=== PATIENT | female | born 1990 | race Caucasian/White ===

== ENCOUNTER 2020-06-28 12:16 | Outpatient (CLI) | payer BC, SELFPAY ==
--- NOTE | ~2020-06-28 | US_ITS ---
EXAMINATION: US venous doppler [facility] DATE: 06/28/2020 12:47 INDICATION: Left lower limb pain. TECHNIQUE: Grayscale ultrasound images without and with compression and Doppler ultrasound images of the left lower extremity veins were obtained. COMPARISON: None. FINDINGS: The visualized portions of left common femoral vein, profunda (deep) femoral vein, femoral vein, popl iteal vein, peroneal veins, posterior tibial veins, and greater saphenous vein outflow are patent. IMPRESSION: 1. No deep venous thrombosis. Reviewed, dictated and finalized at location A. [employer]
== END 2020-06-28 12:17 | disposition home or self-care (01) ==
PROVIDERS: PCP Family Medicine; Visit Provider Physician Assistant
DX: M79.605 Pain in left leg (principal)
CPT/HCPCS: 93971

== ENCOUNTER 2020-06-29 11:20 | Emergency (ER) | payer BC, SELFPAY ==
[2020-06-29 11:37] VITALS: BP 137/72; PULSE 70; RESP 18; TEMP 36.8; O2SAT 100
--- NOTE | 2020-06-29 11:41 | ECG_ITS ---
Measurements Intervals [place] Rate: 64 P: 24 SD: 163 QRS: 66 QRSD: 86 T: 23 QT: 415 QTc: 429 Interpretive Statements SINUS RHYTHM BASELINE WANDER- AVR, AVL, AVF NORMAL ECG Electronically Signed On 06-29-2020 12:41:58 [employer]TR[employer] MACHINE OPERATOR by Danilo Hoang D.O.
[2020-06-29 11:52] LABS: Basophils Absolute Auto 0.1 K/mm3 (0.0-0.1); Basophils Percent Auto 0.6 % (0.2-1.2); Eosinophils Absolute Auto 0.1 K/mm3 (0-0.3); Eosinophils Percent Auto 0.8 % (0-4.4); Hematocrit 41.2 % (37.0-47.0); Hemoglobin 13.9 g/dL (12.0-15.0); Immature Granulocyte Absolute 0.03 K/mm3 (0.00-0.031); Immature Granulocyte Percent A 0.4 % (0-0.5); Lymphocytes Percent Auto 21.8 % (18.3-44.2); Mean Corpuscular HGB Conc 33.7 g/dl (32-36); Mean Corpuscular Hemoglobin 31.1 pg (26-34); Mean Corpuscular Volume 92.2 fl (80-100); Mean Platelet Volume 10.4 fl (7.4-10.4); Monocytes Absolute Auto 0.5 K/mm3 (0.1-0.6); Monocytes Percent Auto 5.6 % (2.6-8.5); Neutrophils Absolute Auto 5.9 K/mm3 (1.3-6.7); Neutrophils Percent Auto 70.8 % (45.5-73.1); Platelet Count Result 297 k/mm3 (150-375); Red Blood Count 4.47 M/mm3 (4.2-5.4); Red Cell Distribution Width 12.6 % (11.5-14.5); White Blood Count 8.3 K/mm3 (4.5-10.0)
[2020-06-29 12:05] LABS: Anion Gap 6 mmol/L (8-16); Blood Urea Nitrogen 8 mg/dL (7-17); Calcium 9.3 mg/dL (8.4-10.2); Carbon Dioxide 28 mmol/L (22-30); Chloride 106 mmol/L (98-107); Estimated CRCL calculation 105 ml/min; Estimated Glomerular Filt Rate > 60; Glucose 92 mg/dL (65-105); Potassium 3.6 mmol/L (3.4-5.0); Sodium 140 mmol/L (137-145)
--- NOTE | 2020-06-29 12:25 | ED.DIZZY ---
HPI - Dizziness General Chief Complaint: Dizziness Stated Complaint: near syncope, vertigo Time Seen by Provider: 06/29/20 11:31 History of Present Illness HPI Narrative: previously healthy 29 yo female presents sto the ED for light headedness. She has had period of dizziness while at work the past 2 days. Both started suddenly. Feel more like light headedness than vertigo. Associated with feeling hot and flushed. She was seen in clinic after the event yesterday and had negative LE dopplers. Today she had a second episode and came to the ED. No CP, SOB, fever, nausea, vomiting, diarrhea Related Data Home Medications Medication Instructions Recorded Confirmed norgestimate-ethinyl estradiol 1 tablet PO DAILY tablet 06/28/20 0.18 mg/0.215mg/0.25mg-35 mcg(28)tablet Allergies Allergy/AdvReac Type Severity Reaction Status Date / Time No Known Allergies Allergy Verified 06/28/20 11:16 Review of Systems Review of Systems: All systems reviewed & are unremarkable except as noted in HPI and below Constitutional: Constitutional: Denies chills, Denies fever(s) and Denies weakness ENT: Reports dizziness and Denies nasal congestion Cardiovascular: Cardiovascular: Denies chest pain Respiratory: Respiratory: Denies dyspnea Gastrointestinal: Gastrointestinal: Denies diarrhea and Denies vomiting Genitourinary: Genitourinary: Denies dysuria Neurologic: Denies confusion, Reports dizziness, Denies syncope and Denies weakness PMFSH Past Medical History Medical History Other allergic rhinitis Palpitations Pansinusitis Surgical History Surgical History Delivery by section H/O dilation and curettage (~06/21/20) Family History Family History Father Family history of malignant neoplasm of brain Grandparent Family history of lymphoma Family history of thyroid disease Hypertension Mother Family history of thyroid disease Family history of mental disorder Sibling Asthma Other Diabetes mellitus Social History Social History (Updated 07/05/20 @ 14:03 by Kris Yeager MD) Smoking status: Never smoker Alcohol intake: current Exam Const: General: healthy appearing, no acute distress and alert Orientation/consciousness: patient oriented x3 HENMT: Head: normal to inspection Ears: TM's normal bilaterally, EAC's normal and external ear abnormal Eyes: Pupils: Equal, round and reactive pupils present EOM: EOMs intact bilaterally Neck: Neck: normal visual inspection Resp: Effort & Inspection: normal respiratory effort Auscultation: clear to auscultation bilaterally, no rales, no rhonchi and no wheezes Cardio: Jugular venous distension: no JVD Rate: regular rate Rhythm: regular rhythm Heart sounds: no murmurs Skin: General skin exam: normal color Neuro: General: patient oriented x3, moves all extremities, no focal motor deficits and CN's II-XI intact bilaterally Cranial nerves: Yes Nystagmus not present Speech: normal speech Gait exam (Neuro): Normal gait present Extrem: General: normal to inspection and no edema Psych: Appearance: well kempt Affect: normal affect Course Vital Signs Vital signs: Vital Signs Temperature 36.8 C 06/29/20 11:37 Pulse Rate 70 06/29/20 11:37 Respiratory Rate 18 06/29/20 11:37 Blood Pressure 137/72 06/29/20 11:37 Pulse Oximetry 100 06/29/20 11:37 Temperature 36.8 C 06/29/20 11:37 Pulse Rate 70 06/29/20 15:00 Respiratory Rate 15 06/29/20 15:00 Blood Pressure 123/77 06/29/20 15:00 Pulse Oximetry 100 06/29/20 15:00 MDM - Dizziness MDM Narrative Medical decision making narrative: UA abnormal, but appears to be contaminate. Otherwise labs and vitals reassuring. EKG normal. Differential Diagnosis Differential diagnosis: Likely benign
[2020-06-29] MEDS: SODIUM CHLORIDE 0.9% IV 1,000 ML 999 ML IV CONT (13:45)
[2020-06-29 13:46] VITALS: BP 124/75; PULSE 67; RESP 16; O2SAT 96
--- NOTE | 2020-06-29 13:48 | PC.NURSE ---
Patient walked to bathroom without difficulty and in no distress at this time.
[2020-06-29 13:57] LABS: Add Urine Microscopic? YES; Appearance Urine Cloudy (Clear); Bacteria Urine 4+ /hpf; Bilirubin Urine Negative (Negative); Blood Urine 1+ (Negative); Color Urine Straw (Yellow); Glucose Urine UA Negative (Negative); Ketones Urine Trace mg/dL (Negative); Leukocyte Esterase Ur Negative LEU/UL (Negative); Mucus Urine Rare /lpf; Nitrate Urine Negative (Negative); Protein Urine Negative (Negative); RBC Urine 0-2 /hpf (0-2); Squamous Epithelial Cell Urine Many /hpf (Few); Urobilinogen Urine Negative mg/dL (<2.0); WBC Urine 0-3 /hpf
[2020-06-29 14:34] LABS: D Dimer 0.38 ug/mL (<0.48)
[2020-06-29 14:38] VITALS: BP 116/70; PULSE 80
[2020-06-29 14:39] VITALS: BP 124/77; BP 130/80; PULSE 71; PULSE 76
[2020-06-29 15:00] VITALS: BP 123/77; PULSE 70; RESP 15; O2SAT 100
== END 2020-06-29 15:01 | disposition home or self-care (01) ==
PROVIDERS: Emergency Provider Emergency Medicine; PCP Family Medicine
DX: R55 Syncope and collapse (principal)
CPT/HCPCS: 36415; 80048; 81001; 81025; 85025; 85380; 93005; 96360; 99284; J7030

== ENCOUNTER → 2021-10-19 01:40 | Outpatient (CLI) | payer BC, OTHER, SELFPAY ==
[2021-10-19 16:55] LABS: SARS-CoV-2 RNA PCR Negative
== END ==
PROVIDERS: PCP Family Medicine; Visit Provider Family Medicine
DX: R68.89 Other general symptoms and signs (principal); Z20.822 Contact with and (suspected) exposure to COVID-19
CPT/HCPCS: C9803; U0003; U0005

== ENCOUNTER 2024-05-23 08:18 | Emergency (ER) | payer OTHER, SELFPAY ==
[2024-05-23 08:36] VITALS: BP 110/77; PULSE 83; RESP 16; TEMP 36.6; O2SAT 100
--- NOTE | 2024-05-23 09:02 | ED_ITS ---
HPI - General Adult General Chief complaint: Skin/Abscess/Foreign Body Stated complaint: Hives Time Seen by Provider: 05/23/24 09:01 Source: patient Mode of arrival: ambulatory Limitations: no limitations History of Present Illness HPI narrative: Pt presents for evaluation of a rash. Symptom onset yesterday. Symptoms were initially in the posterior aspect of her bilateral lower extremities. She now has involvement of her bilateral upper extremities, left flank and abdomen. No history of similar symptoms. No difficulty breathing or swallowing. No one else has similar symptoms. Denies infectious symptoms including but not limited to fever, chills, sore throat. No new lotions, soaps, detergents or topical products. She tried taking claritin for her symptoms. She does not smoke. Related Data Home Medications ?Medication ?Instructions ?Recorded ?Confirmed ?Last Taken ?Type sertraline 25 mg tablet 25 mg PO DAILY 04/11/22 05/23/24 Unknown History norgestimate 0.25 mg-ethinyl tablet PO 10/22/23 10/22/23 Unknown History estradiol 35 mcg tablet (Estarylla) norgestimate-ethinyl estradiol tablet 05/23/24 Unknown History 0.18 mg/0.215mg/0.25mg-35 mcg(28)tablet (Tri-Sprintec (28)) Allergies Allergy/AdvReac Type Severity Reaction Status Date / Time clindamycin AdvReac Rash and Verified 05/23/24 08:39 itching Review of Systems Review of Systems: CONSTITUTIONAL: Denies fever, chills, or sweats. EYES: Denies visual changes, redness, or discharge. ENT: Denies rhinorrhea, congestion, sore throat, or otalgia. CARDIOVASCULAR: Denies chest pain, palpitations, or edema. RESPIRATORY: Denies cough or dyspnea. GASTROINTESTINAL: Denies abdominal pain, nausea, vomiting, or diarrhea. GENITOURINARY: Denies dysuria or hematuria. SKIN: Reports pruritic rash to abdomen, left flank and extremities x 4. MUSCULOSKELETAL: Denies back pain, joint pain, or myalgia. NEUROLOGIC: Denies headache, numbness, dizziness, or weakness. PSYCHIATRIC: Denies anxiety or depression. [facility] Past Medical History Medical History Scoliosis (and kyphoscoliosis), idiopathic Other allergic rhinitis Palpitations Pansinusitis Surgical History Surgical History H/O dilation and curettage (~06/21/20) Delivery by section Family History Family History Father Family history of malignant neoplasm of brain Grandparent Family history of lymphoma Family history of thyroid disease Hypertension Mother Family history of thyroid disease Family history of mental disorder Sibling Asthma Other Diabetes mellitus Social History Social History Smoking status: Never smoker Alcohol intake: current Substance use: never Substance use type: does not use Lack of Transportation: No Lack of Food: Never True Current Housing: I Have Housing Concerned About Future Housing: No Difficulty Paying Gas/Electric Bills: No Difficulty Paying for Meds: No Currently Unemployed: No Education: Master's Degree or Higher Difficulty w/ Childcare or Family Care: No Exam Narrative: GENERAL: Well-appearing, well-nourished, and in no acute distress. HEAD: Normocephalic, atraumatic. EYES: PERRLA and EOMI. ENT: Nares clear, no rhinorrhea or epistaxis. Mucous membranes moist. Oropharynx without tonsillar hypertrophy exudate or other lesions. Bilateral TMs pearly de anda nonbulging NECK: Supple. No adenopathy or masses. No carotid bruits or JVD CHEST: Clear to auscultation. No respiratory distress. No wheezes rales or rhonchi HEART: Regular rate and rhythm. No murmur heard. Normal peripheral pulses. ABDOMEN: Soft, nontender, nondistended, normal active bowel sounds. EXTREMITIES: Normal range of motion. No edema. SKIN: There are patchy areas of annular erythema to abdomen, left flank and extremities x 4. NEURO: No focal deficits. Alert and oriented x3. PSYCH: Normal mood and affect. Course Course Emergency Course: This is a 33-year-old female who presented for evaluation of a pruritic rash. Etiology unclear. Will treat with prednisone. She will take OTC antihistamines. Increase hydration. Follow up with primary provider. Go to the ER for worsening symptoms. Pt in agreement with plan of care. Level of Care: Express Care Visit Vital Signs Vital signs: Vital Signs Temperature 36.6 C 05/23/24 08:36 Pulse Rate 83 05/23/24 08:36 Respiratory Rate 16 05/23/24 08:36 Blood Pressure 110/77 05/23/24 08:36 Pulse Oximetry 100 05/23/24 08:36 Temperature 36.6 C 05/23/24 08:36 Pulse Rate 83 05/23/24 08:36 Respiratory Rate 16 05/23/24 08:36 Blood Pressure 110/77 05/23/24 08:36 Pulse Oximetry 100 05/23/24 08:36 Medical Decision Making Vital Signs Vital Signs: Vital Signs Temperature 36.6 C 05/23/24 08:36 Pulse Rate 83 05/23/24 08:36 Respiratory Rate 16 05/23/24 08:36 Blood Pressure 110/77 05/23/24 08:36 Pulse Oximetry 100 05/23/24 08:36 Temperature 36.6 C 05/23/24 08:36 Pulse Rate 83 05/23/24 08:36 Respiratory Rate 16 05/23/24 08:36 Blood Pressure 110/77 05/23/24 08:36 Pulse Oximetry 100 05/23/24 08:36 Discharge Plan Discharge Clinical Impression: Allergic reaction Patient Disposition: Home, Self-Care Condition: Stable Instructions: Antibiotic Form, Acute Rash (ED), Allergies (ED) Patient Language: Pashto Prescriptions: New prednisone 50 mg tablet 50 mg PO DAILY Qty: 5 0RF No Action norgestimate-ethinyl estradiol [Tri-Sprintec (28)] 0.18/0.215/0.25 mg-35 mcg (28) tablet sertraline 25 mg tablet 25 mg PO DAILY norgestimate-ethinyl estradiol [Estarylla] 0.25-35 mg-mcg tablet PO amoxicillin 875 mg tablet 875 mg PO Q12H Qty: 20 0RF Follow-up/Referrals: Bushra Ferguson MD [Primary Care Provider] - Time of Disposition: 09:04
== END 2024-05-23 09:09 | disposition home or self-care (01) ==
PROVIDERS: Emergency Provider Nurse Practitioner; PCP Family Medicine
DX: R21 Rash and other nonspecific skin eruption (principal); T78.40XA Allergy, unspecified, initial encounter
CPT/HCPCS: 99213; G0463

== ENCOUNTER 2024-12-12 08:14 | Emergency (ER) | payer OTHER, SELFPAY ==
[2024-12-12 08:31] VITALS: BP 116/83; PULSE 69; RESP 16; TEMP 36.6; O2SAT 100
--- NOTE | 2024-12-12 08:50 | ED_ITS ---
HPI - Skin/Abscess/Foreign Bdy General Chief complaint: Skin/Abscess/Foreign Body Stated complaint: INFECTED [place]LLYBUT[place] PIERCING Time Seen by Provider: 12/12/24 08:34 Source: patient and RN notes reviewed Mode of arrival: ambulatory Limitations: no limitations History of Present Illness HPI narrative: Patient presents today complaining of redness and mild pain to an old piercing of the umbilicus that was noted yesterday morning. Denies drainage. She had been swimming recently and a [place]. This area was pierced 17 years ago and she has not had a piercing in for the last 7 years. She applied some Neosporin without improvement. No history of staph infections, abscesses, boils, MRSA. Related Data Home Medications ?Medication ?Instructions ?Recorded ?Confirmed ?Last Taken ?Type sertraline 25 mg tablet 25 mg PO DAILY 04/11/22 05/23/24 Unknown History norgestimate-ethinyl estradiol tablet 05/23/24 Unknown History 0.18mg/0.215mg/0.25mg-0.035mg(28)tablet (Tri-Sprintec (28)) Allergies Allergy/AdvReac Type Severity Reaction Status Date / Time clindamycin AdvReac Rash and Verified 12/12/24 08:30 itching PMFSH Past Medical History Medical History Scoliosis (and kyphoscoliosis), idiopathic Other allergic rhinitis Palpitations Pansinusitis Surgical History Surgical History H/O dilation and curettage (~06/21/20) Delivery by section Family History Family History Father Family history of malignant neoplasm of brain Grandparent Family history of lymphoma Family history of thyroid disease Hypertension Mother Family history of thyroid disease Family history of mental disorder Sibling Asthma Other Diabetes mellitus Social History Social History Smoking status: Never smoker Alcohol intake: current Substance use: never Substance use type: does not use Lack of Transportation: No Lack of Food: Never True Current Housing: I Have Housing Concerned About Future Housing: No Difficulty Paying Gas/Electric Bills: No Difficulty Paying for Meds: No Currently Unemployed: No Education: Master's Degree or Higher Difficulty w/ Childcare or Family Care: No Comments At time of signature, I have reviewed and agree with nursing past medical, surgical, social and family history unless otherwise noted. Please see nursing chart for further information. There is no relevant family history pertinent to the presenting complaint Exam Narrative: GENERAL: Well-appearing, well-nourished, and in no acute distress. HEAD: Normocephalic, atraumatic. EYES: EOMI. No redness or drainage. Conjunctivae normal. ENT: Mucous membranes pink and moist. NECK: Normal AROM. CHEST: No respiratory distress. EXTREMITIES: Normal range of motion. No edema. SKIN: Warm, dry. Capillary refill normal. Normal skin turgor. Approximately 2 x 2 cm area of erythema above the umbilicus where old piercing remains. Upon squeezing the area, tiny amount of green purulent discharge resulting. Culture obtained. No edema noted. NEURO: No focal deficits. Alert and oriented x3. Gait steady. PSYCH: Normal affect. No signs of depression or anxiety. Course Course Level of Care: Express Care Visit Vital Signs Vital signs: Vital Signs Temperature 97.9 F 12/12/24 08:31 Pulse Rate 69 12/12/24 08:31 Respiratory Rate 16 12/12/24 08:31 Blood Pressure 116/83 12/12/24 08:31 Pulse Oximetry 100 12/12/24 08:31 Temperature 97.9 F 12/12/24 08:31 Pulse Rate 69 12/12/24 08:31 Respiratory Rate 16 12/12/24 08:31 Blood Pressure 116/83 12/12/24 08:31 Pulse Oximetry 100 12/12/24 08:31 Reviewed MDM - Skin/Abscess/Foreign Bdy MDM Narrative Medical decision making narrative: 34-year-old female patient presents with redness and mild pain to an old piercing of the umbilicus that has not had a piercing in it in at least 7 years. She has recently been swimming in [place]. Upon exam, area was erythematous and had some purulent green discharge upon expressing the area. Culture obtained. Due to risk of Vibrio infection and no risk factors for severe disease, patient will be started on Doxycycline. Vital signs stable. Anticipatory guidance given. Differential Diagnosis Differential diagnosis: Likely abscess of skin or subcutaneous tissue and cellulitis Critical Care Time Critical Care Time Critical Care Time: No Discharge Plan Discharge Clinical Impression: Infected pierced umbilicus Patient Disposition: Home Condition: Stable Instructions: Antibiotic Form Additional Instructions: Please take the doxycycline as prescribed until gone. Clean the area once daily with soap and water and keep covered at least for the next couple of days. A sample of the drainage has been sent to the hospital lab, and if your antibiotics need to be changed based on these results, you will be notified by telephone. Take Tylenol or ibuprofen for pain if needed. If symptoms significantly worsen, please follow-up with your PCP or go to the emergency department. Patient Language: Albanian Prescriptions: New doxycycline hyclate 100 mg tablet 100 mg PO BID 7 Days Qty: 14 0RF No Action norgestimate-ethinyl estradiol [Tri-Sprintec (28)] 0.18/0.215/0.25 mg-35 mcg (28) tablet sertraline 25 mg tablet 25 mg PO DAILY Follow-up/Referrals: Bushra Ferguson MD [Primary Care Provider] - Time of Disposition: 08:54
== END 2024-12-12 08:58 | disposition home or self-care (01) ==
PROVIDERS: Emergency Provider Nurse Practitioner; PCP Family Medicine
DX: S31.135A Puncture wound of abdominal wall without foreign body, periumbilic region without penetration into peritoneal cavity, initial encounter (principal); L08.9 Local infection of the skin and subcutaneous tissue, unspecified; X58.XXXA Exposure to other specified factors, initial encounter; M41.20 Other idiopathic scoliosis, site unspecified
CPT/HCPCS: 99213; G0463

== ENCOUNTER 2025-05-15 08:28 | Emergency (ER) | payer OTHER, SELFPAY ==
[2025-05-15 08:40] VITALS: BP 130/77; PULSE 69; RESP 16; TEMP 36.4; O2SAT 99
--- NOTE | 2025-05-15 08:49 | ED.GENADULT ---
HPI - General Adult General Chief complaint: Upper Respiratory Infection Stated complaint: SORE THROAT/HEADACHE/CONGESTION Time Seen by Provider: 05/15/25 08:49 Source: patient Mode of arrival: ambulatory Limitations: no limitations History of Present Illness HPI narrative: 34-year-old female patient presents to [facility] with complaints of a sore throat and congestion for the past 2 weeks. Denies fevers body aches or chills. Patient states she has been taking [id number] Sudafed, Mucinex and Afrin. Patient denies any ear pain. Denies any chest pain or shortness of breath. Patient states she does have a mild cough. Denies abdominal pain nausea vomiting or diarrhea. Denies at this time states she is on control. Related Data Home Medications ?Medication ?Instructions ?Recorded ?Confirmed ?Last Taken ?Type sertraline 25 mg tablet 25 mg PO DAILY 04/11/22 05/15/25 Unknown History norgestimate-ethinyl estradiol tablet 05/23/24 Unknown History 0.18mg/0.215mg/0.25mg-0.035mg(28)tablet (Tri-Sprintec (28)) Allergies Allergy/AdvReac Type Severity Reaction Status Date / Time clindamycin AdvReac Rash and Verified 05/15/25 08:40 itching Review of Systems Review of Systems: CONSTITUTIONAL: Denies fever, chills, or sweats. EYES: Denies visual changes, redness, or discharge. ENT: Denies rhinorrhea, Positive congestion, sore throat, denies otalgia. CARDIOVASCULAR: Denies chest pain, palpitations, or edema. RESPIRATORY: positive mild cough denies dyspnea. GASTROINTESTINAL: Denies abdominal pain, nausea, vomiting, or diarrhea. GENITOURINARY: Denies dysuria or hematuria. SKIN: Denies rash or itching. MUSCULOSKELETAL: Denies back pain, joint pain, or myalgia. NEUROLOGIC: Denies headache, numbness, or weakness. PSYCHIATRIC: Denies anxiety or depression. [facility] Past Medical History Medical History Scoliosis (and kyphoscoliosis), idiopathic Other allergic rhinitis Palpitations Pansinusitis Surgical History Surgical History H/O dilation and curettage (~06/21/20) Delivery by section Family History Family History Father Family history of malignant neoplasm of brain Grandparent Family history of lymphoma Family history of thyroid disease Hypertension Mother Family history of thyroid disease Family history of mental disorder Sibling Asthma Other Diabetes mellitus Social History Social History Smoking status: Never smoker Alcohol intake: current Substance use: never Substance use type: does not use Lack of Transportation: No Lack of Food: Never True Current Housing: I Have Housing Concerned About Future Housing: No Difficulty Paying Gas/Electric Bills: No Difficulty Paying for Meds: No Currently Unemployed: No Education: Master's Degree or Higher Difficulty w/ Childcare or Family Care: No Comments At the time of my signature I agree with nursing past medical history, surgical, social, and family history. There is no relevant family history pertinent to the presenting complaint. Exam Narrative: GENERAL: Well-appearing, well-nourished, and in no acute distress. HEAD: Normocephalic, atraumatic. EYES: PERRLA and EOMI. ENT: Nares , no rhinorrhea or epistaxis. Mucous membranes moist. The Porter tonsillar enlargement, exudates or lesions present. Bilateral TMs are clear no erythema foreign bodies the canal. NECK: Supple. No lymphadenopathy CHEST: Clear to auscultation. No respiratory distress. HEART: Regular rate and rhythm. No murmur heard. Normal peripheral pulses. ABDOMEN: Soft, nontender, nondistended, normal active bowel sounds. EXTREMITIES: Normal range of motion. No edema. SKIN: Warm, dry, no rash. NEURO: No focal deficits. Alert and oriented x3. Course Course Level of Care: Express Care Visit Reevaluation(s) Reevaluation #1: Re-evaluated patient notified her that her strep test today is negative. Will discharge home or some oral steroids to help with the congestion and inflammation and encouraged warm saltwater gargles, hot tea with honey to help with the sore throat and may continue ozgu-ejg-vzrputm antihistamines. Patient verbalized understanding denies any other questions or concerns at this time. Date: 05/15/25 Time: 09:13 Vital Signs Vital signs: Vital Signs Temperature 36.4 C 05/15/25 08:40 Pulse Rate 69 05/15/25 08:40 Respiratory Rate 16 05/15/25 08:40 Blood Pressure 130/77 05/15/25 08:40 Pulse Oximetry 99 05/15/25 08:40 Temperature 36.4 C 05/15/25 08:40 Pulse Rate 69 05/15/25 08:40 Respiratory Rate 16 05/15/25 08:40 Blood Pressure 130/77 05/15/25 08:40 Pulse Oximetry 99 05/15/25 08:40 Vital signs reviewed. The patient has been informed that they may have pre-hypertension or Hypertension based on a BP reading in the department. I recommend that the patient call the primary care provider listed on their discharge instructions or a physician of their choice this week to arrange follow up for further evaluation of possible pre-hypertension or Hypertension MDM MDM Narrative Medical decision making narrative: Plan care patient is to swab the patient for strep today to rule out need for antibiotics. If test is negative most likely will treat with methylprednisone steroid and Tessalon Perles for the cough and encouraged continued [id number]-[id number] medication. Patient is aware the plan of care at this time Differential Diagnosis Differential Diagnosis: Differential diagnosis: Allergic rhinitis, chronic sinusitis, tonsillitis, acute sinusitis, infectious mononucleosis, seasonal influenza, pertussis, diphtheria, meningococcal disease, viral syndrome, viral bronchitis, RSV, COVID-19 Critical Care Time Critical Care Time Critical Care Time: No Discharge Plan Discharge Clinical Impression: Acute viral sinusitis Patient Disposition: Home Condition: Stable Instructions: Antibiotic Form, Sinusitis (ED), Viral Syndrome (ED) Additional Instructions: Viral illness may last between 7-12days; antibiotic is NOT recommended at this time. Recommend antihistamine such as Benadryl at night time and Claritin/Zyrtec/Shani during the day Cough syrup may cause drowsiness; avoid driving or take it at night time. May take uqky-ydb-[id number] vitamins such as vitamin-C, 2000 mg in the morning and 2000 mg in the evening, zinc 50 mg daily for 5 days and vitamin D3 2000 IU daily. Also, recommend symptomatic treatment includes: rest, fluids, and increase humidity of the air at home. Recommend Acetaminophen or nonsteroidal anti-inflammatory agents (NSAIDs) as directed in the bottle to reduce fever and/pain/headache. Avoid smoking/second-hand smoke. Limit visits to areas with large crowds. Please schedule a follow-up visit with your personal physician for further evaluation and treatment within 3-5days. Including recheck and discussion of your blood pressure. If your symptoms persist, change or worsen significantly before you can contact your personal physician then please, without delay, go to the emergency department for further evaluation. Patient Language: Mozambican Prescriptions: New benzonatate 200 mg capsule 200 mg PO TID PRN (Reason: cough) 10 Days Qty: 30 0RF methylprednisolone 4 mg tablets,dose pack See Rx Instructions PO .COMPLEX Qty: 21 0RF Rx Instructions: for 6 days No Action norgestimate-ethinyl estradiol [Tri-Sprintec (28)] 0.18/0.215/0.25 mg-35 mcg (28) tablet sertraline 25 mg tablet 25 mg PO DAILY Follow-up/Referrals: Bushra Ferguson MD [Primary Care Provider, Family Practice] Time of Disposition: 09:15
[2025-05-15 09:19] LABS: EDSTREPNEGPOS1 Negative (Negative)
== END 2025-05-15 09:20 | disposition home or self-care (01) ==
PROVIDERS: Emergency Provider Nurse Practitioner Family; PCP Family Medicine
DX: J01.90 Acute sinusitis, unspecified (principal)
CPT/HCPCS: 87081; 87880; 99213; G0463

== ENCOUNTER 2025-05-29 08:02 | Emergency (ER) | payer OTHER, SELFPAY ==
--- NOTE | 2025-05-29 08:04 | ED.URI ---
HPI - URI/Sore Throat General Chief Complaint: Upper Respiratory Infection Stated Complaint: fever, headache, zaira Time Seen by Provider: 05/29/25 08:03 Source: patient Mode of arrival: ambulatory Limitations: no limitations History of Present Illness HPI Narrative: Yael is a 34-year-old female patient presenting to the clinic today with complaints of fever, headache, and congestion since . She reports she was seen here 2 weeks ago and diagnosed with URI symptoms and given Tessalon Perles and Medrol Dosepak. She reports that those medications did help however her symptoms have returned. She has now developed a fever highest 100.4? F. Is blowing out yellow/green nasal drainage and having sinus pressure. MD elicited complaint: sore throat and nasal congestion Related Data Home Medications ?Medication ?Instructions ?Recorded ?Confirmed ?Last Taken ?Type sertraline 25 mg tablet 25 mg PO DAILY 04/11/22 05/29/25 Unknown History norgestimate-ethinyl estradiol tablet 05/23/24 Unknown History 0.18mg/0.215mg/0.25mg-0.035mg(28)tablet (Tri-Sprintec (28)) Allergies Allergy/AdvReac Type Severity Reaction Status Date / Time clindamycin AdvReac Rash and Verified 05/29/25 08:14 itching Review of Systems Review of Systems: Pertinent positives per HPI. Patient denies any rash, headache, visual changes, dizziness, shortness of breath, chest pain, palpitations, nausea, vomiting, diarrhea, constipation, abdominal pain, or any urinary issues. FOR[facility]LY [facility], [facility] Past Medical History Medical History Scoliosis (and kyphoscoliosis), idiopathic Other allergic rhinitis Palpitations Pansinusitis Surgical History Surgical History H/O dilation and curettage (~06/21/20) Delivery by section Family History Family History Father Family history of malignant neoplasm of brain Grandparent Family history of lymphoma Family history of thyroid disease Hypertension Mother Family history of thyroid disease Family history of mental disorder Sibling Asthma Other Diabetes mellitus Social History Social History Smoking status: Never smoker Alcohol intake: current Substance use: never Substance use type: does not use Lack of Transportation: No Lack of Food: Never True Current Housing: I Have Housing Concerned About Future Housing: No Difficulty Paying Gas/Electric Bills: No Difficulty Paying for Meds: No Currently Unemployed: No Education: Master's Degree or Higher Difficulty w/ Childcare or Family Care: No Comments At the time of my signature, I reviewed and agree with the nursing past medical, surgical, social, and family history. There is no relevant family history pertinent to the patient complaint. Exam Narrative: General: Well-developed, well nourished, in no apparent distress Head: Normocephalic, atraumatic Eyes: Pupils equally round and reactive to light bilaterally, EOM intact, sclera and conjunctive clear, no discharge, lids normal Ears: TMs intact and clear, ear canals clear, no drainage, grossly hearing normal. Nose: Nares patent, yellow nasal discharge, moderate inflammation, maxillary sinus tenderness. Mouth: Oral pharynx red without lesions or masses, good dentition, MMM. Postnasal drip Neck: Supple, trachea midline, no enlargement of anterior or posterior cervical nodes, no thyroid masses or goiter palpable. Cardio: Regular rate and rhythm, s1 and s2 normal, no murmur appreciated. Resp: Clear to auscultation bilaterally, no rhonchi, rales, wheezing or rubs Course Course Level of Care: Express Care Visit Vital Signs Vital signs: Vital Signs Temperature 35.9 C L 05/29/25 08:14 Pulse Rate 95 05/29/25 08:14 Respiratory Rate 16 05/29/25 08:14 Blood Pressure 121/85 05/29/25 08:14 Pulse Oximetry 98 05/29/25 08:14 Temperature 35.9 C L 05/29/25 08:14 Pulse Rate 95 05/29/25 08:14 Respiratory Rate 16 05/29/25 08:14 Blood Pressure 121/85 05/29/25 08:14 Pulse Oximetry 98 05/29/25 08:14 MDM MDM Narrative Medical decision making narrative: At the time of visit patient is resting comfortably on the exam table. Patient appears to be nontoxic. Complaints of fever, headache, and congestion since [place]. She reports she was seen here 2 weeks ago and diagnosed with URI symptoms and given Tessalon Perles and Medrol Dosepak. She reports that those medications did help however her symptoms have returned. She has now developed a fever highest 100.4? F. Is blowing out yellow/green nasal drainage and having sinus pressure. On exam patient has bilateral TMs intact and clear, yellow nasal drainage, moderate anterior turbinate inflammation, maxillary sinus tenderness, heart rates regular rate and rhythm, lung sounds are clear. Plan: I suspect patient has bacterial rhinosinusitis. Prescription for Augmentin and prednisone was sent to the pharmacy. Supportive measures were discussed with the patient and they voiced understanding discharge instructions and agrees to treatment plan. Return precautions reviewed Differential Diagnosis Differential Diagnosis: Differential diagnostic considerations for upper respiratory infection include upper respiratory infection, croup, otitis media, sinusitis, viral infection, bronchitis, influenza, pharyngitis, strep, uvulitis. Discharge Plan Discharge Clinical Impression: Acute bacterial rhinosinusitis Patient Disposition: Home Condition: Stable Instructions: Antibiotic Form, Rhinosinusitis (ED) Additional Instructions: Take prescription medications only as prescribed-prednisone and Augmentin Increase fluids and stay well hydrated May take Tylenol or motrin as directed on bottle for pain/fever May use Flonase 1 spray in each nare daily May take OTC antihistamines such as Zyrtec or Claritin daily as directed on bottle May apply Vicks vapor rub to chest to open sinuses Sinus rinses for congestion Cepacol spray, cough drops, throat lozenges, warm tea with honey/lemon, gargle salt water to soothe throat BRAT diet for diarrhea Clear liquids x 24 hours then advance as tolerated for nausea/vomiting Go to the ED if you develop a worsening in your condition- high fever not controlled by Tylenol or Motrin, dehydration, weakness, lethargy, shortness of breath, or chest pain. Follow up with your PCP in 3-5 days if symptoms persist. Patient Language: [place] Prescriptions: New amoxicillin-pot clavulanate 875-125 mg tablet 1 tablet PO Q12H 10 Days Qty: 20 0RF prednisone 20 mg tablet 40 mg PO DAILY 5 Days Qty: 10 0RF No Action norgestimate-ethinyl estradiol [Tri-Sprintec (28)] 0.18/0.215/0.25 mg-35 mcg (28) tablet sertraline 25 mg tablet 25 mg PO DAILY Follow-up/Referrals: Bushra Ferguson MD [Primary Care Provider, [facility]] Time of Disposition: 08:19 Quality NIHSS Nursing Documentation ED NIHSS nursing documentation: reviewed/agree
[2025-05-29 08:14] VITALS: BP 121/85; PULSE 95; RESP 16; TEMP 35.9; O2SAT 98
== END 2025-05-29 08:25 | disposition home or self-care (01) ==
PROVIDERS: Emergency Provider Nurse Practitioner Family; PCP Family Medicine
DX: J01.90 Acute sinusitis, unspecified (principal)
CPT/HCPCS: 99213; G0463